=== PATIENT | female | born 1995 | race Caucasian/White ===

== ENCOUNTER 2018-04-14 00:51 | Emergency (ER) | payer OTHER ==
--- NOTE | 2018-04-14 01:58 | ED Physician Documentation ---
History of Present Illness - Stated complaint Stated Complaint: ANXIETY - Chief complaint Chief Complaint: General - History obtained from History obtained from: Patient - History of Present Illness Timing: Prior to arrival Pain level now: 0 Improved by: no ameliorating factors Worsened by: No apparent inciting or exacerbating factors - Additonal information Additional information: patient reports having a panic attack tonight, but symptoms have resolved prior to arrival. She reports having increasingly frequent and severe panic attacks over the past several weeks. She says that she is in the process of being discharged from the [facility] because of her anxiety and depression. She describes her panic attacks as periods of anxiety, shaking, Racing thoughts, crying. She strongly denies suicidal ideation. Review of Systems Cardiac: reports: Palpitations. denies: Chest pain / pressure Respiratory: reports: Dyspnea GI: reports: Reviewed and negative Psychiatric: reports: Depressed, Anxiety. denies: Suicidal, Homicidal, Hallucinations PD PAST MEDICAL HISTORY - Past Medical History Past Medical History: No - Past Surgical History Past Surgical History: No - Present Medications Home Medications: Ambulatory Orders Medication Instructions Recorded Confirmed LORazepam [Lorazepam] 1 mg PO BID PRN #20 tablet 04/14/18 - Allergies Allergies/Adverse Reactions: Allergies Allergy/AdvReac Type Severity Reaction Status Date / Time No Known Drug Allergies Allergy Verified 04/14/18 01:02 - Living Situation Living Arrangement: reports: At home - Social History Does the pt smoke?: No PD ED PE NORMAL - Vitals Vital signs reviewed: Yes - General General: Alert and oriented X 3, No acute distress, Well developed/nourished - Cardiac Cardiac: RRR, No murmur - Respiratory Respiratory: No respiratory distress, Clear bilaterally - Neuro Neuro: Alert and oriented X 3, Normal speech Eye Opening: Spontaneous Motor: Obeys Commands Verbal: Oriented GCS Score: 15 - Psych Psych: Normal mood, Normal affect Results - Vitals Vitals: Vital Signs - 24 hr 04/14/18 04/14/18 00:58 02:28 Temperature 36.5 C Heart Rate 83 80 Respiratory 18 16 Rate Blood Pressure 136/95 H 129/71 O2 Saturation 100 99 Oxygen O2 Source Room air PD MEDICAL DECISION MAKING - ED course Complexity details: considered differential, d/w patient ED course: calm, cooperative, pleasant and polite. NAD. has been on zoloft, prozac, and another antidepressant (cannot recall name) in the past but not on any medications currently. will rx lorazepam for acute anxiety episodes. - Sepsis Event Vital Signs: Vital Signs - 24 hr 04/14/18 04/14/18 00:58 02:28 Temperature 36.5 C Heart Rate 83 80 Respiratory 18 16 Rate Blood Pressure 136/95 H 129/71 O2 Saturation 100 99 Oxygen O2 Source Room air Departure - Departure Disposition: 01 Home, Self Care Clinical Impression: Anxiety Condition: Good Instructions: ED Panic Attack Follow-Up: JANELLE HENSON MD [Primary Care Provider] - Prescriptions: LORazepam [Lorazepam] 1 mg PO BID PRN #20 tablet PRN Reason: Anxiety Discharge Date/Time: 04/14/18 02:28
[2018-04-14 02:29] VITALS: BP 129/71
== END 2018-04-14 02:28 | disposition home or self-care (01) ==
LOC: ED 00:51
DX: F41.9 Anxiety disorder, unspecified (principal)
CPT/HCPCS: 99283